=== PATIENT | female | born 1975 | race Caucasian/White ===

== ENCOUNTER 2018-01-17 08:44 | Inpatient (IN) | payer BC, OTHER ==
[~2018-01-17] VITALS: Ht 172.7 cm; Wt 68.0 kg
--- NOTE | ~2018-01-17 | EKG ---
[address] [place] [address] ELECTROCARDIOGRAM REPORT Name: IGNACIO CORNELL Room #: 427-P ADM IN M.R.#: [id number] Admission: 01/17/18 Attend Phys: Maritza Webber Discharge: Date of : 77 Report #: [id number] THIS REPORT FOR: //name// [facility] Test Date: 2018-01-17 Test Time: 22:51:00 Pat Name: IGNACIO CORNELL Department: Room: 427 Gender: F Plant Maintenance Manager: nohemy : 1975 Requested By: Katheryn Whitney Order Number: [id number] MD: Pepe Muro Measurements Intervals [place] Rate: 86 P: 47 ND: 168 QRS: 48 QRSD: 126 T: 82 QT: 447 QTc: 535 Interpretive Statements Sinus rhythm Consider right atrial enlargement Prolonged QT interval Artifact in multiple leads Compared to ECG 01/17/2018 09:19:07 Prolonged QT interval now present Electronically Signed On 01-18-2018 8:27:34 CDT by Pepe Muro [email or web address] <ELECTRONICALLY SIGNED> By: Pepe Muro MD, [facility] 01/18/18 0827 [id number] [id number] Pepe Muro MD, [facility] /EPI
--- NOTE | ~2018-01-17 | EKG ---
[place] [address] [address] [facility] [place] [address] ELECTROCARDIOGRAM REPORT Name: IGNACIO CORNELL Room #: 427-P [facility] IN ..#: [id number] Admission: 01/17/18 Attend Phys: Maritza Webber Discharge: Date of : 77 Report #: [id number] THIS REPORT FOR: //name// [facility] ED Test Date: 2018-01-17 Test Time: 09:19:07 Pat Name: IGNACIO CORNELL Department: Room: Gender: F [employer]: [facility] : 1975 Requested By: Sushma Saenz Order Number: [id number] MD: Pepe Muro Measurements Intervals [place] Rate: 66 P: 52 [place]: 168 QRS: 57 QRSD: 94 T: 53 QT: 445 QTc: 467 Interpretive Statements Sinus rhythm Normal tracing Baseline wander in lead(s) V3,V6 No previous ECG available for comparison Electronically Signed On 01-17-2018 15:52:24 CDT by Pepe Muro [email or web address] <ELECTRONICALLY SIGNED> By: Pepe Muro MD, [facility] 01/17/18 1552 0919 8 Pepe Muro MD, [facility] /EPI
--- NOTE | ~2018-01-17 | HC ---
[facility] [place] [address] CONSULTATION Name: ANETAIGNACIO Derek Room #: 427-P [facility] IN M.R.#: [id number] Admission: 01/17/18 Attend Phys: Maritza Webber Discharge: Date of : 77 Report #: [id number] THIS REPORT FOR: //name// CC: Maritza CORNEJO DATE OF SERVICE: 01/17/2018 HISTORY OF PRESENT ILLNESS: This is a 42-year-old female patient for which a consultation was requested by Dr. Webber for migraine headache but the history is somewhat confusing. She indicates that she wants her vagus nerve tested. She initially indicated that she has headache every day but then, subsequently she indicated that she has not headache for 2 years until she had it recently. She does indicate that she has a lifelong history of migraine. She is actually admitted with nausea, vomiting this time. She also indicated that she has a pretty significant pain. She indicates she takes Florinef for migraine. When I asked her how much she takes she indicates she takes about 3 per week. REVIEW OF SYSTEMS: Indicated that she has migraine for a long time, but she has not tried any prophylaxis treatment. When she was on Zoloft, she used to feel better and her headache was better. She indicates she has not eaten anything and she does not want to decide anything about the testing but she will think about it and let the nurses know. She does have a history of a hysterectomy, but she indicates she is not on any hormones. She gets some visual disturbances some neck pain with these headaches. She also states that sometimes she feels dizzy and she wants to know the reason she feels dizzy. She had some subjective fever. Record indicates that there is some question of gastric ulcer, but that finding was not explained to her. This is the relevant 14-point review of systems I can get in this patient. PAST MEDICAL HISTORY: Positive for what she described as a migraine. FAMILY HISTORY: Unremarkable. SOCIAL HISTORY: She does not smoke. PHYSICAL EXAMINATION: NEUROLOGICAL: Indicate she is alert, responsive. Her speech looks good. She states that she does not feel good because she has not eaten anything. Cranial nerve examination 2 through 12 is unremarkable. She moves all four extremities. She feels she is weak on the left side. She indicated that she has not told anybody about the weakness on the left side. When I asked her about the bruises on her legs, she indicated that she fell because of the weakness on the left side. When I asked her how long the weakness is going on, she indicates about 2 weeks. Her reflexes are symmetrical. When I tried to do the position sense, [facility] [address] [place] [address] CONSULTATION Name: IGNACIO CORNELL Room #: 427-P [facility] IN M.R.#: [id number] Admission: 01/17/18 Attend Phys: Maritza Webber Discharge: Date of : 77 Report #: [id number] she gets it right on both sides but takes longer. She really has no meningeal sign or papilledema. CARDIAC: Examinations appear unremarkable. LUNGS: She has no respiratory difficulty or rhonchi. VITAL SIGNS: Blood pressure is 110/59, respiration is 20, pulse is 53 and temperature is 98.2. LABORATORY DATA: White count is 4.8 and sodium is 141 and in spite of history of nausea and vomiting, her estimated GFR is 69. No imaging studies available. IMPRESSION AND RECOMMENDATIONS: The history is not clear in this patient. I will talk to Dr. Webber and we will check with the patient tomorrow. She wants some particular tests for the vagus nerve and I do not have any vagus nerve testing here. I recommended that she gets an MRI of the brain because she indicated she has not had it for 20 years, but she wants to think about that. If she decides to have the further workup done, we will be happy to do that but if she wants some vagus nerves testing done, she has probably go to some place where autonomic testing can be done and go to a tertiary care center. I will discuss all of it with the patient with Dr. Webber tomorrow. By: 1823 0020 Arvind Flowers MD /chad
[~2018-01-17 08:44] MED LIST: FLEXERIL PO; ISOMETHEPT-DIC1 EACH PO; NORCO 5-325 TA1 EACH PO; PAXIL40 MG PO; ULTRAM 50MG TAB50 MG PO; ZOFRAN ODT4 MG PO; ZOLOFT100 MG PO
[2018-01-17 08:45] VITALS: BP 132/89
[2018-01-17 09:02] LABS: ABSOLUTE NEUTROPHILS 3.3 thou/uL (1.4-8.2); BASOPHILS 0.4 % (0.0-2.0); EOSINOPHILS 1.4 % (0.0-3.0); HEMATOCRIT 43.5 % (37.0-47.0); LYMPHOCYTES 22.7 % (24.0-44.0); MCH 30.5 pg (26.0-34.0); MCHC 34.5 g/dL (28.0-37.0); MCV 88.5 fL (80.0-100.0); MONOCYTES 7.5 % (1.0-8.0); PLATELET COUNT 248 thou/uL (150-400); RBC 4.91 mil/uL (4.20-5.00); RDW 13.9 % (10.5-14.5); WBC 4.8 thou/uL (4.0-11.0)
[2018-01-17 09:13] LABS: CALCIUM 9.7 mg/dL (8.5-10.1); CREATININE 0.9 mg/dL (0.6-1.0); POTASSIUM 3.7 mmol/L (3.5-5.1)
[2018-01-17 09:19] LABS: ALBUMIN 4.6 g/dL (3.4-5.0); DIRECT BILIRUBIN 0.2 mg/dL (<0.1-0.3); TOTAL BILIRUBIN 0.8 mg/dL (<0.1-1.0); TOTAL PROTEIN 8.1 g/dL (6.4-8.2)
[2018-01-17 11:00] LABS: URINE BILIRUBIN NEGATIVE (Negative); URINE BLOOD NEGATIVE (Negative); URINE CLARITY CLEAR; URINE COLOR YELLOW; URINE GLUCOSE-RANDOM* NEGATIVE (Negative); URINE KETONES TRACE (Negative); URINE LEUKOCYTES NEGATIVE (Negative); URINE NITRITE NEGATIVE (Negative); URINE PROTEIN (DIPSTICK) NEGATIVE (Negative); URINE SPECIFIC GRAVITY <= 1.005 (1.005-1.035); URINE UROBILINOGEN 0.2 E.U./dl (0.2-1.0)
[2018-01-17 11:30] LABS: TSH 1.6 uIU/mL (0.358-3.740)
[2018-01-17 13:39] VITALS: BP 119/71
[2018-01-17 14:52] VITALS: BP 117/74
[2018-01-17 15:24] VITALS: BP 110/59
[2018-01-17 19:36] VITALS: BP 105/57
[2018-01-17 22:45] VITALS: BP 151/83
[2018-01-18 07:08] VITALS: BP 130/85
[2018-01-18 08:00] VITALS: BP 130/85
[2018-01-18] MEDS ORDERED: PEPCID20 MG PO (16:09)
[2018-01-18] MEDS ORDERED: PHENERGAN 25 MG25 M1 PO (16:09)
== END 2018-01-18 11:38 | disposition home or self-care (01) | DRG 392 ==
LOC: ER 08:44 → 4E 09:58 → EROBS 09:58 → 4E 15:08 → ENTRNSPT 01-18 09:50 → EDTRNSPTSTS 01-18 09:53 → EDTRNSPT 01-18 11:00 → 4E 01-18 11:38
PROVIDERS: Emergency Medicine; Hospitalist
DX: K29.70 Gastritis, unspecified, without bleeding (principal); G43.901 Migraine, unspecified, not intractable, with status migrainosus; F41.9 Anxiety disorder, unspecified; K21.9 Gastro-esophageal reflux disease without esophagitis; K58.9 Irritable bowel syndrome, unspecified; T39.395A Adverse effect of other nonsteroidal anti-inflammatory drugs [NSAID], initial encounter; Y92.89 Other specified places as the place of occurrence of the external cause; Z87.11 Personal history of peptic ulcer disease; Z90.710 Acquired absence of both cervix and uterus; Z79.899 Other long term (current) drug therapy; Z88.8 Allergy status to other drugs, medicaments and biological substances
CPT/HCPCS: 10183

== ENCOUNTER 2018-12-03 23:56 | Emergency (ER) | payer OTHER ==
[~2018-12-03] VITALS: Ht 172.7 cm; Wt 70.3 kg
[~2018-12-03 23:56] MED LIST changes: +PEPCID20 MG PO; +PHENERGAN 25 MG25 M1 PO
[2018-12-04 04:17] LABS: CALCIUM 10.2 mg/dL (8.5-10.1); CREATININE 0.8 mg/dL (0.6-1.0); POTASSIUM 3.5 mmol/L (3.5-5.1)
[2018-12-04 06:33] LABS: ABSOLUTE NEUTROPHILS 4.7 thou/uL (1.4-8.2); BASOPHILS 0.5 % (0.0-2.0); EOSINOPHILS 0.2 % (0.0-3.0); HEMATOCRIT 42.2 % (37.0-47.0); HEMOGLOBIN 14.4 gm/dL (12.0-15.0); LYMPHOCYTES 19.8 % (24.0-44.0); MCH 30.5 pg (26.0-34.0); MCHC 34.1 g/dL (28.0-37.0); MCV 89.5 fL (80.0-100.0); MONOCYTES 5.9 % (1.0-8.0); PLATELET COUNT 230 thou/uL (150-400); POLYS 73.6 % (36.0-66.0); RBC 4.71 mil/uL (4.20-5.00); RDW 13.2 % (10.5-14.5); WBC 6.3 thou/uL (4.0-11.0)
[2018-12-04 11:05] VITALS: BP 122/61
== END 2018-12-04 14:51 | disposition short-term general hospital (02) ==
LOC: ER 23:56
PROVIDERS: Emergency Medicine
DX: F41.9 Anxiety disorder, unspecified (principal); F32.9 Major depressive disorder, single episode, unspecified; G43.909 Migraine, unspecified, not intractable, without status migrainosus; F41.0 Panic disorder [episodic paroxysmal anxiety]; F43.10 Post-traumatic stress disorder, unspecified; Z90.710 Acquired absence of both cervix and uterus; Z88.8 Allergy status to other drugs, medicaments and biological substances